=== PATIENT | male | born 1945 | race Caucasian/White ===

== ENCOUNTER → 2018-03-02 | Day surgery (SDC) | payer MEDICARE ==
[~2018-03-02] MED LIST: ASPIRIN81 MG; ATENOLOL50 MG PO; CELEBREX100 MG PO; FENTANYL CITRATE/PF 100MCG/2 ML INJ ONE; GLYCOPYRROLATE 0.2 MG/ML VIAL ONE; LISINOPRIL2.5 MG PO; METFORMIN HCL500 MG PO; MIDAZOLAM HCL 2 MG/2 ML VIAL ONE; NORCO 5-325 TA1 EACH PO; OR PHACO EYE KIT ONE; PREOP PHACO EYE KIT ONE; SIMVASTATIN20 MG PO; SKELAXIN800 MG; TRIAMTERENE-HCTZ1 EA PO
== END | disposition home or self-care (01) ==
LOC: OR 08:16
PROVIDERS: ATTEND Ophthalmology
DX: H25.12 Age-related nuclear cataract, left eye (principal); E11.9 Type 2 diabetes mellitus without complications; G47.33 Obstructive sleep apnea (adult) (pediatric); I10 Essential (primary) hypertension; E78.5 Hyperlipidemia, unspecified; F17.210 Nicotine dependence, cigarettes, uncomplicated; Z79.82 Long term (current) use of aspirin; Z79.84 Long term (current) use of oral hypoglycemic drugs
CPT/HCPCS: 36415; 66984; 82948; J2250; V2632

== ENCOUNTER → 2018-03-16 | Day surgery (SDC) | payer MEDICARE ==
[~2018-03-16] MED LIST changes: +ATROPINE SULFATE 1 MG/ML VIAL ONE; +EPHEDRINE SULFATE INJ 50 MG/10 ML SYR ONE; -GLYCOPYRROLATE 0.2 MG/ML VIAL ONE; +GLYCOPYRROLATE INJ 1MG/ 5 ML SYR ONE
== END | disposition home or self-care (01) ==
LOC: OR 10:05 → MERGE 13:00
PROVIDERS: ATTEND Ophthalmology
DX: H25.11 Age-related nuclear cataract, right eye (principal); E78.5 Hyperlipidemia, unspecified; E11.22 Type 2 diabetes mellitus with diabetic chronic kidney disease; I12.9 Hypertensive chronic kidney disease with stage 1 through stage 4 chronic kidney disease, or unspecified chronic kidney disease; N18.9 Chronic kidney disease, unspecified; F17.210 Nicotine dependence, cigarettes, uncomplicated; Z79.82 Long term (current) use of aspirin; Z79.84 Long term (current) use of oral hypoglycemic drugs
CPT/HCPCS: 36415; 66984; 82948; J0461; J2250; J3490

== ENCOUNTER 2018-08-18 13:13 | Emergency (ER) | payer MEDICARE ==
[~2018-08-18] VITALS: Ht 175.3 cm; Wt 2.5 kg
[~2018-08-18 13:13] MED LIST changes: -ATROPINE SULFATE 1 MG/ML VIAL ONE; -EPHEDRINE SULFATE INJ 50 MG/10 ML SYR ONE; -FENTANYL CITRATE/PF 100MCG/2 ML INJ ONE; -GLYCOPYRROLATE INJ 1MG/ 5 ML SYR ONE; -MIDAZOLAM HCL 2 MG/2 ML VIAL ONE; -OR PHACO EYE KIT ONE; -PREOP PHACO EYE KIT ONE
[2018-08-18] MEDS ORDERED: IPRATROPIUM BROMIDE 0.02% 2.5 ML NEB NEB STA (15:21)
[2018-08-18] MEDS ORDERED: ALBUTEROL SULF 0.083% NEB SOLN 3 ML NEB NEB STA (15:21)
[2018-08-18 15:25] LABS: BASOPHILS # (AUTO) 0.1 (0.0-0.1); BASOPHILS % 0.9 % (0.0-1.0); EOSINOPHILS # (AUTO) 0.1 (0.0-0.4); EOSINOPHILS % 0.9 % (0.0-6.0); HEMATOCRIT 45.5 % (38.2-49.6); HEMOGLOBIN 14.6 g/dL (14.0-18.0); LYMPHOCYTES # (AUTO) 1.2 (1.0-3.2); LYMPHOCYTES % 17.2 % (18.0-39.1); MEAN CORPUSCULAR HEMOGLOBIN 30.7 pg (28-32); MEAN CORPUSCULAR HGB CONC 32.1 g/dL (31-35); MEAN CORPUSCULAR VOLUME 95.8 fL (81-99); MONOCYTES # (AUTO) 0.6 (0.2-0.8); MONOCYTES % 9.6 % (4.4-11.3); NEUTROPHILS # (AUTO) 4.8 (2.1-6.9); NEUTROPHILS % 70.8 % (38.7-80.0); PLATELET COUNT 208 x10e3/uL (140-360); RED BLOOD COUNT 4.75 x10e6/uL (4.3-5.7); RED CELL DISTRIBUTION WIDTH 13.8 % (11.7-14.4)
[2018-08-18] MEDS ORDERED: DEXAMETHASONE SOD PHOS 10 MG/1 ML VIAL INJ ONE (15:30)
[2018-08-18 15:51] LABS: INR 0.91; PROTHROMBIN TIME 13.1 seconds (11.9-14.5)
[2018-08-18 15:52] LABS: PARTIAL THROMBOPLASTIN TIME 34.9 seconds (23.8-35.5)
[2018-08-18 16:38] LABS: ALBUMIN 3.9 g/dL (3.5-5.0); ALBUMIN/GLOBULIN RATIO 1.1 (0.8-2.0); ANION GAP 15.3 mmol/L (8-16); CALCIUM 9.7 mg/dL (8.4-10.2); CREATININE, SERUM 1.23 mg/dL (0.72-1.25); POTASSIUM 5.3 mmol/L (3.5-5.1)
--- NOTE | 2018-08-18 16:45 | Diagnostic Imaging Report ---
EXAMINATION: CHEST SINGLE (PORTABLE) INDICATION: Shortness of breath. COMPARISON: None FINDINGS: TUBES and LINES: None. LUNGS: Moderate lung volumes. Mild patchy left basilar opacities. No evidence of lobar consolidation or pulmonary edema. PLEURA: No pleural effusion or pneumothorax. HEART AND MEDIASTINUM: The cardiomediastinal silhouette is unremarkable. BONES AND SOFT TISSUES: No acute osseous lesion. Soft tissues are unremarkable. UPPER ABDOMEN: No free air under the diaphragm. IMPRESSION: No acute radiographic abnormality. Mild patchy left basilar opacity, likely atelectasis, although pneumonia is possible in the appropriate clinical context. Signed by: Dr. Shira Gandara MD on 08/18/2018 4:41 PM
[2018-08-18 17:01] LABS: CREATINE KINASE MB 2.8 ng/mL (0-5.0)
== END 2018-08-18 17:40 | disposition home or self-care (01) ==
LOC: ER 13:13
DX: R05 Cough (principal); J20.9 Acute bronchitis, unspecified; I10 Essential (primary) hypertension; E11.9 Type 2 diabetes mellitus without complications; F17.210 Nicotine dependence, cigarettes, uncomplicated
CPT/HCPCS: 36415; 71045; 80053; 82550; 82553; 83880; 84484; 85025; 85610; 85730; 87400; 99284; J1100

== ENCOUNTER 2019-03-08 17:38 | Emergency (ER) | payer MEDICARE ==
[~2019-03-08] VITALS: Ht 175.3 cm; Wt 2.3 kg
--- OUTSIDE RECORDS SUMMARY | 2019-03-08 17:42 | XMS REPORT ---
Author Author [facility] Address Unknown Phone Unavailable Care Team Providers Care Process Improvement Engineer Name Role Phone Trenton SANCHEZ Unavailable Unavailable Problems This patient has no known problems. Allergies, Adverse Reactions, Alerts This patient has no known allergies or adverse reactions. Medications This patient has no known medications. Results Test Description Test Time Test Comments Text Results Atomic Results Result Comments CHEST SINGLE (PORTABLE) 2018-08-18 16:38:00 [place] [address] Patient Name: HILARY VALENCIA MR #: [id number] : 1945 Age/Sex: 72/M Req #: [id number] Adm Physician: Ordered by: LISA SANCHEZ MD Report #: [id number] Location: ER Room/Bed: Procedure: [id number] DX/CHEST SINGLE (PORTABLE) Exam Date: Exam Time: REPORT STATUS: Signed EXAMINATION: CHEST SINGLE (PORTABLE) INDICATION: Shortness of breath. COMPARISON: None FINDINGS: TUBES and LINES: None. LUNGS: Moderate lung volumes. Mild patchy left basilar opacities. No evidence of lobar consolidation or pulmonary edema. PLEURA: No pleural effusion or pneumothorax. HEART AND MEDIASTINUM: The cardiomediastinal silhouette is unremarkable. BONES AND SOFT TISSUES: No acute osseous lesion. Soft tissues are unremarkable. UPPER ABDOMEN: No free air under the diaphragm. IMPRESSION: No acute radiographic abnormality. Mild patchy left basilar opacity, likely atelectasis, although pneumonia is possible in the appropriate clinical context. Signed by: Dr. Micaela Lr MD on 08/18/2018 4:41 PM Dictated By: MICAELA LR MD 164 Transcribed By: RUFINA on 08/18/181640 COPY TO: LISA SANCHEZ MD
[2019-03-08] MEDS ORDERED: HYDRALAZINE HCL 20 MG/ML VIAL IV STA (17:45)
[2019-03-08 17:55] LABS: BASOPHILS % 0.3 % (0.0-1.0); EOSINOPHILS # (AUTO) 0.1 (0.0-0.4); EOSINOPHILS % 0.7 % (0.0-6.0); HEMATOCRIT 52.6 % (38.2-49.6); HEMOGLOBIN 17.3 g/dL (14.0-18.0); LYMPHOCYTES # (AUTO) 1.5 (1.0-3.2); LYMPHOCYTES % 10.4 % (18.0-39.1); MEAN CORPUSCULAR HEMOGLOBIN 30.5 pg (28-32); MEAN CORPUSCULAR HGB CONC 32.9 g/dL (31-35); MEAN CORPUSCULAR VOLUME 92.8 fL (81-99); MONOCYTES # (AUTO) 1.4 (0.2-0.8); MONOCYTES % 9.2 % (4.4-11.3); NEUTROPHILS # (AUTO) 11.6 (2.1-6.9); NEUTROPHILS % 78.8 % (38.7-80.0); PLATELET COUNT 197 x10e3/uL (140-360); RED BLOOD COUNT 5.67 x10e6/uL (4.3-5.7); RED CELL DISTRIBUTION WIDTH 14.5 % (11.7-14.4)
[2019-03-08] MEDS ORDERED: ONDANSETRON HCL INJ 2MG/ML 2ML 2 MG/ML VIAL IV NR (18:00)
[2019-03-08] MEDS ORDERED: MORPHINE SULFATE 2 MG/ML SYR 1ML IV NR (18:00)
[2019-03-08 18:09] LABS: INR 0.94; PROTHROMBIN TIME 13.1 seconds (11.9-14.5)
[2019-03-08 18:10] LABS: PARTIAL THROMBOPLASTIN TIME 29.3 seconds (23.8-35.5)
[2019-03-08 18:17] LABS: ALBUMIN 4.5 g/dL (3.5-5.0); ALBUMIN/GLOBULIN RATIO 1.1 (0.8-2.0); ANION GAP 23.1 mmol/L (8-16); CREATININE, SERUM 1.44 mg/dL (0.72-1.25); POTASSIUM 4.1 mmol/L (3.5-5.1)
[2019-03-08] MEDS ORDERED: FUROSEMIDE INJ 10 MG/ML 2 ML VIAL IV NR (18:30)
[2019-03-08] MEDS ORDERED: ONDANSETRON HCL INJ 2MG/ML 2ML 2 MG/ML VIAL IV PRN (18:45)
[2019-03-08] MEDS ORDERED: FUROSEMIDE INJ 10 MG/ML 4 ML VIAL IV NR (18:45)
[2019-03-08] MEDS ORDERED: FUROSEMIDE INJ 10 MG/ML 2 ML VIAL ONE (18:52)
[2019-03-08] MEDS ORDERED: FUROSEMIDE INJ 10 MG/ML 4 ML VIAL ONE (18:52)
[2019-03-08] MEDS ORDERED: ASPIRIN 81 MG CHEW TAB PO ONE (19:00)
[2019-03-08] MEDS ORDERED: NICOTINE 21 MG/EA PATCH TOP PRN (19:00)
--- NOTE | 2019-03-08 19:10 | NUR ---
report rc'd from basia gilliam rn. to room to assess pt. pt diaphoretic, resp rate 30-38. pt c/o pain to luq. vs assessed and recorded. charge nurse informed. dr cheek informed. to room to assess patient. new orders rc'd.
[2019-03-08] MEDS ORDERED: METRONIDAZOLE 750MG/NS 150ML 150 ML IV SCH (20:00)
[2019-03-08] MEDS ORDERED: VANCOMYCIN 1GM/NS 250 ML 250 ML IV SCH (20:00)
--- NOTE | 2019-03-08 20:00 | Diagnostic Imaging Report ---
EXAM: CT Abdomen and Pelvis WITHOUT contrast INDICATION: ^STONE PROTOCOL ^[id number] ^1830 ^Y COMPARISON: None. TECHNIQUE: Abdomen and pelvis were scanned utilizing a multidetector helical scanner from the lung base to the pubic symphysis without administration of IV contrast. Absence of intravenous contrast decreases sensitivity for detection of focal lesions and vascular pathology. Coronal and sagittal reformations were obtained. Renal stone protocol was was performed. IV CONTRAST: None. ORAL CONTRAST: Water RADIATION DOSE: Total DLP: A 14.7 mGy*cm Estimated effective dose: (DLP x 0.015 x size factor) mSv COMPLICATIONS: None FINDINGS: LINES and TUBES: None. LOWER THORAX: Subsegmental atelectasis in both lung bases, left greater than right. HEPATOBILIARY: No focal hepatic lesions. No biliary ductal dilation. GALLBLADDER: No radio-opaque stones or sludge. No wall thickening. SPLEEN: No splenomegaly. PANCREAS: No focal masses or ductal dilatation. ADRENALS: No adrenal nodules KIDNEYS/URETERS: No hydronephrosis. No cystic or solid mass lesions. No stones. GI TRACT: Diffuse wall thickening of the stomach, worse of the distal gastric body. There are few foci of free air adjacent to the mid gastric body with surrounding fat stranding and a small amount of fluid highly suggestive of perforated gastric ulcer. There is diffuse inflammatory changes with mild dilatation of the duodenum and adjacent loops of small bowel. The remaining bowel is normal in size without wall thickening. The appendix is not seen. PELVIC ORGANS/BLADDER: Unremarkable. LYMPH NODES: No lymphadenopathy. VESSELS: Mild atherosclerotic calcifications of the abdominal aorta without aneurysm. PERITONEUM / RETROPERITONEUM: Small amount of free air adjacent to the gastric body. Small to moderate free fluid in the abdomen and pelvis. Moderate fat stranding in the upper abdomen surrounding the stomach. BONES: Multilevel degenerative changes of the lumbar spine. SOFT TISSUES: Small fat-containing left inguinal hernia with surgical clip in place. IMPRESSION: CT findings consistent with gastric perforation likely from ulceration. Small amount of free air adjacent to the distal gastric body. Diffuse fat stranding and small amount of free fluid in the abdomen and pelvis. These findings were communicated to Dr. Hillman on 03/08/2019 at 7:45 PM. Signed by: Dr. Bruna Galicia M.D. on 03/08/2019 7:57 PM
--- NOTE | 2019-03-08 20:02 | NUR ---
TRANSFER INITIATED TO [facility]' DT, SPOKE TO [place]
[2019-03-08] MEDS ORDERED: VANCOMYCIN 1GM/NS 250 ML 250 ML ONE (20:03)
[2019-03-08] MEDS ORDERED: METRONIDAZOLE 500MG/NS 100ML 0 ML IV ONE (20:03)
--- NOTE | 2019-03-08 20:09 | Diagnostic Imaging Report ---
EXAMINATION: CHEST SINGLE (PORTABLE) INDICATION: ^ERMD ORDER ^[id number] ^1850 ^Y COMPARISON: Chest radiograph 08/18/2018 FINDINGS: AP view TUBES and LINES: None. LUNGS: Lungs are well inflated. Unchanged bibasilar atelectasis. There is no evidence of pneumonia or pulmonary edema. PLEURA: No pleural effusion or pneumothorax. HEART AND MEDIASTINUM: Stable mild enlargement of the cardiac silhouette. BONES AND SOFT TISSUES: No acute osseous lesion. Soft tissues are unremarkable. UPPER ABDOMEN: No free air under the diaphragm. IMPRESSION: No acute thoracic abnormality. Signed by: Dr. Bruna Galicia M.D. on 03/08/2019 8:05 PM
[2019-03-08] MEDS ORDERED: HYDROMORPHONE 1MG/1ML INJ IV NR (20:15)
--- NOTE | 2019-03-08 20:40 | NUR ---
APPROVAL RECEIVED BY [facility] L[facility] RN; ACCEPTING PHYSICIAN DR. Pepe CONDE
[2019-03-08] MEDS ORDERED: SODIUM CHLORIDE 0.9% IV SCH (20:45)
--- NOTE | 2019-03-08 20:45 | NUR ---
[facility] [place] [facility] CALL[facility], SPOKE TO [place], DISPATCH
[2019-03-08] MEDS ORDERED: SODIUM CHLORIDE 0.9% 1000ML 1,000 ML ONE (20:46)
[2019-03-08] MEDS ORDERED: SODIUM CHLORIDE 0.9% 1000ML 1,000 ML IV STA (20:49)
[2019-03-08 21:14] VITALS: BP 155/63
[2019-03-09] MEDS ORDERED: ASPIRIN 325 MG TAB EC PO SCH (09:00)
[2019-03-09] MEDS ORDERED: METRONIDAZOLE 750MG/NS 150ML 150 ML IV SCH (20:00)
[2019-03-09] MEDS ORDERED: VANCOMYCIN 1GM/NS 250 ML 250 ML IV SCH (20:15)
== END 2019-03-08 21:19 | disposition other institution (70) ==
LOC: ER 17:51 → ERHOLD 18:44 → UNDOADMIN 18:44 → ER 21:19
DX: R07.89 Other chest pain (principal); R06.09 Other forms of dyspnea; R11.0 Nausea; I50.21 Acute systolic (congestive) heart failure
CPT/HCPCS: 36415; 36600; 71045; 74176; 80053; 82550; 82553; 83605; 83690; 83880; 84484; 85025; 85610; 85730; 87040; 93005; 96374; 99285; J0360; J1170; J1940 ×2; J2270; J2405; J3370; J7030

== ENCOUNTER → 2020-01-05 | Outpatient (CLI) | payer MEDICARE ==
[~2020-01-05] MED LIST changes: +IOPAMIDOL 370 MG/ML 200 ML INFUS..BTL INJ ONE; +SODIUM CHLORIDE 0.9% 500ML 0 ML ONE; +SODIUM CHLORIDE 0.9% 50ML 50 ML ONE
[2020-01-05 12:21] LABS: CREATININE, SERUM 1.23 mg/dL (0.72-1.25)
--- NOTE | 2020-01-05 13:54 | Diagnostic Imaging Report ---
Examination:CT SOFT TISSUE NECK WITH CONTRAST History: Malignant neoplasm of lip. Comparison studies: None Technique: Axial images from the skull base to the thoracic inlet Coronal and sagittal reformatted images. Dose modulation, iterative reconstruction, and/or weight based adjustment of the mA/kV was utilized to reduce the radiation dose to as low as reasonably achievable. Intravenous contrast: 100mL of Isovue 370. Findings: Soft tissues: No definite enhancing mass of the soft tissues of the lips. Aerodigestive tract: No abnormality. Lymph nodes: No radiographically significant adenopathy. Vessels: Arteries and veins are patent. Thyroid gland: Normal in size and homogeneous. Submandibular glands: Normal in size and homogeneous. Parotid glands: Normal in size and homogeneous. Orbits: Slitlike bilateral lenses. Paranasal sinuses: Clear. Temporal bones: No abnormalities. Skull base and facial bones: Intact. Cervical spine: Right facet arthropathy at C4-C5. Left facet arthropathy from C2 through C5. Anterior osteophytosis from C4 through C6. Disc osteophyte complex and bilateral uncovertebral arthropathy at C5-C6 with severe left neural foraminal narrowing and mild canal stenosis. The remainder of the cervical levels demonstrate no disc bulge or herniation or foraminal or canal stenosis. 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 Visualized lung apices: No abnormalities. IMPRESSION: 1. No definite enhancing mass of the soft tissue of the lips. 2. Degenerative changes of the cervical spine with congenital fusion of C6 and C7. Signed by: Dr. Kristy Nieves M.D. on 01/05/2020 1:50 PM
== END ==
LOC: CT 11:18
PROVIDERS: ATTEND Dermatology
DX: C00.1 Malignant neoplasm of external lower lip (principal)
CPT/HCPCS: 36415; 70491; 82565; 84520; Q9967; J7040

== ENCOUNTER → 2020-02-23 | Day surgery (SDC) | payer MEDICARE, OTHER ==
[~2020-02-23] MED LIST changes: +ACETAMINOPHEN 1000 MG/100 ML IV ONE; +CEFAZOLIN SOD 1 GM/NS 50ML 50 ML IV ONE; +ELIQUIS5 M1 PO; +GLYCOPYRROLATE INJ 0.2 MG/ML VIAL ONE; -IOPAMIDOL 370 MG/ML 200 ML INFUS..BTL INJ ONE; +LIDOCAINE HCL 2% LOCAL INJ 5 ML SDV VIAL INJ ONE; +NEOSTIGMINE 1 MG/ML 10ML VIAL ONE; +OMEPRAZOLE40 MG PO; +ONDANSETRON HCL INJ 2MG/ML 2ML 2 MG/ML VIAL ONE; +PROPOFOL IV EMULSION 10 MG/ML 20 ML VIAL ONE; +ROCURONIUM BROMIDE 10 MG/ML 5ML VIAL IV ONE; +SEVOFLURANE INHAL SOLN 250 ML PEN BTL ONE; -SODIUM CHLORIDE 0.9% 500ML 0 ML ONE; -SODIUM CHLORIDE 0.9% 50ML 50 ML ONE
[2020-02-23 12:10] VITALS: BP 138/67
--- NOTE | 2020-02-23 16:06 | Operative Report ---
DATE OF PROCEDURE: 02/23/2020 SURGEON: Eduar Owen MD PREOPERATIVE DIAGNOSES: 1. Squamous cell carcinoma, lower lip. 2. Status post Mohs micrographic surgery with removal of approximately 75% lower lip. POSTOPERATIVE DIAGNOSES: 1. Squamous cell carcinoma, lower lip. 2. Status post Mohs micrographic surgery with removal of approximately 75% lower lip. PROCEDURES: 1. Adjacent tissue transfer of lip, 15 cm2. 2. Adjacent tissue transfer of chin, 10 cm2. ANESTHESIA: General. 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 He has undergone Mohs micrographic resection of the lesion, which has resulted in approximately 75% resection of the lower lip, only the left of 25% of the lip remains. The risks, benefits, and alternatives were discussed with the patient and the family. They are prepared to undergo the procedure as outlined. PROCEDURE IN DETAIL: The patient was marked preoperatively in the holding area. He was brought to the operating theater and after the induction of adequate general anesthesia, he was prepped and draped in a supine position and a time-out was performed. Appreciation of the defect was performed. The vermilion border for 75% of the lower lip has been resected. There is resection of the skin of the cranial portion of the chin, that has been removed. The entire wet mucosa of the lower lip for 75% has been removed as well. The orbicularis rebel muscles remains in the bed of the tissue. In order to best reconstruct the lower lip, it is felt that the chin skin should be undermined and advanced cranially to where the lower brule vermilion border would exist. At this point, a gingival flap of the oral mucosa will be performed and that will be brought out and advanced to suture to the edge of the skin of the chin. The lower portion of the mouth and the chin area then infiltrated with Xylocaine with epinephrine, a total of 12 mL was used. The skin edges were sharply debrided of all the devitalized tissue from the Mohs micrographic surgery. The procedure was begun on the anterior surface of the orbicular rebel muscle and undermining of the skin and subcutaneous tissues was performed. Care was taken to leave the orbicular rebel muscle and the mentalis muscle intact. The dissection continues for several cm and it was noted that the elevation of the chin measures approximately 5 cm x 2 cm. This is a total square surface area of 10 cm2. At this point, the skin is able to be brought cranially without significant tension. On the inner aspect of the lower lip, the mucosa is then undermined all the way to the gingival sulcus. Care was taken to ensure that the flap is maximally wide at the sulcus measuring approximately 4 cm. The head of the flap is 4 cm as well for 16 cm2 flap. At this point, the flap was advanced cranially towards the vermilion border, where the skin of the chin was then sutured to the edge of the oral mucosa. Using 5-0 chromic in an interrupted fashion. At the completion of the procedure, the incision was noted to be hemostatic. All the flaps were noted to be well vascularized. Bactroban ointment, Xeroform gauze, sterile dressing were applied to the lower lip region. The estimated blood loss of procedure was approximately 10 mL to 15 mL. The patient tolerated the procedure well and was brought to recovery room in satisfactory condition and discharged with a postoperative instruction sheet as well as a followup appointment. MD ROMULO Castillo/SAM /[id number]
== END | disposition home or self-care (01) ==
LOC: OR 07:39
PROVIDERS: ATTEND Plastic Surgery
DX: Z48.3 Aftercare following surgery for neoplasm (principal); Z85.828 Personal history of other malignant neoplasm of skin; G47.33 Obstructive sleep apnea (adult) (pediatric); E11.9 Type 2 diabetes mellitus without complications; I49.1 Atrial premature depolarization; I10 Essential (primary) hypertension; E78.5 Hyperlipidemia, unspecified; K21.9 Gastro-esophageal reflux disease without esophagitis; F17.210 Nicotine dependence, cigarettes, uncomplicated; Z01.812 Encounter for preprocedural laboratory examination; Z11.59 Encounter for screening for other viral diseases; Z79.02 Long term (current) use of antithrombotics/antiplatelets; Z79.84 Long term (current) use of oral hypoglycemic drugs
CPT/HCPCS: 14040; 14061; 36415; 82948; J0131; J0690; J2001; J2405; J2704; J2710; U0002